=== PATIENT | male | born 1990 | race African-American/Black ===

== ENCOUNTER 2018-08-09 10:42 | Emergency (ER) | payer SELFPAY | END 2018-08-09 11:16 | disposition home or self-care (01) | LOC: ERS 10:42 | DX: Z00.00 Encounter for general adult medical examination without abnormal findings (principal) | CPT/HCPCS: 99283 ==

== ENCOUNTER 2021-02-11 15:38 | Emergency (ER) | payer BC, SELFPAY | END 2021-02-11 17:09 | disposition home or self-care (01) | LOC: ERS 15:38 | DX: S02.40FA Zygomatic fracture, left side, initial encounter for closed fracture (principal); W50.0XXA Accidental hit or strike by another person, initial encounter | CPT/HCPCS: 70450; 70486 ==